=== PATIENT | female | born 1935 | race Caucasian/White ===

== ENCOUNTER 2016-07-07 05:19 | Day surgery (SDC) | payer OTHER, MEDICARE ==
[~2016-07-07] VITALS: Ht 167.6 cm; Wt 56.7 kg
--- NOTE | ~2016-07-07 | S ---
[facility] [place] [address] SURGICAL PATH RPT PROCEDURE Name: SAKSHI CAMEJO Room #: DEP [facility]#: [id number] Admission: 07/07/16 Date of : 35 Discharge: 07/07/16 Report #: [id number] Path Case #: [id number] PATHOLOGY REPORT COLLECTION DATE: 07/07/2016 RECEIVED DATE: 07/07/2016 SUBMITTING PHYS: Dr. Javier Beckwith OTHER PHYS: Dr. Erika Warren SPECIMEN(S) RECEIVED: A.Right upper lid tissue B.Right upper lid tissue-dif * * * * * * * * * * * * FINAL DIAGNOSIS: A. Skin and subcutaneous tissue "right upper lid tissue", biopsy: - Skin and subcutaneous tissue with reactive changes including fibrosis, chronic inflammation and foci of foreign body type giant cell response. B. Skin, right upper lid tissue, direct immunofluorescence, two pieces (black and blue inked): - Negative. There is no evidence to support an immunobullous disorder. COMMENT: Direct immunofluorescence was performed by Dr. Rizo. (CLW:alyce:; d/t: 07/11/16) PATHOLOGIST: Kelsie Lui M.D. REPORT ELECTRONICALLY SIGNED BY: Kelsie Lui M.D. DATE/TIME: 07/11/2016 22:14 * * * * * * * * * * * * MICROSCOPIC DESCRIPTION: B. Direct immunofluorescence (performed with appropriate positive controls): Black inked specimen IgG: negative IgA: negative IgM: negative C3: negative Fibrinogen: negative Blue inked specimen IgG: negative IgA: negative IgM: negative C3: negative [facility] [address] [place] [address] SURGICAL PATH RPT PROCEDURE Name: SAKSHI CAMEJO Room #: [facility]#: [id number] Admission: 07/07/16 Date of : 35 Discharge: 07/07/16 Report #: [id number] Path Case #: [id number] Fibrinogen: negative GROSS PATHOLOGY: A. The specimen is received fresh from the OR labeled, "Sakshi Camejo, right upper lid tissue." It consists of two fragments of hair/eyelash bearing eyelid skin and subcutaneous/submucosal tissue. One fragment measures 0.7 x 0.5 x 0.3 cm. The second fragment measures 0.9 x 0.4 x 0.2 cm. The larger fragment is inked blue, and the smaller fragment is inked black. Both fragments are bisected. One half of each tissue fragment is submitted as A1. The remaining half of each fragment is submitted in saline and subsequently processed for direct immunofluorescence. The case was discussed intraoperatively with Dr. Javier Beckwith. (BHAVANI:; d/t: 07/07/16) B. The specimen is received in saline, labeled "Sakshi Camejo" and additionally labeled "right upper lid tissue" on the requisition. Received are 2 irregular excisions of skin measuring 0.5 x 0.3 x 0.3 cm and 0.7 x 0.2 x 0.5 cm. The epidermal surfaces are myers, wrinkled, and grossly unremarkable. The resection margin of the skin excisions were previously differentially inked black and blue. The specimen is transferred into Bryce fixative and entirely submitted in cassette B1, for direct immunofluorescence studies. (TTL; 07/07/2016) INTRAOPERATIVE CONSULTATION (Lucila Lui M.D.) A. "Right upper lid tissue": - Eyelid cicatricial entropion tissue for the evaluation of immunoglobulin basement membrane disease. (CLW:; d/t: 07/07/16) Testing performed by [facility] at [facility] [address] [place] [address] CLINICAL HISTORY: Cicatricial entropion INITIAL CPT CODE(S): A; 54266, 05740 B; 93919, 71401, 89883, 22822, 82707, 41414, 03582(4) Professional services performed by [facility] at [facility] [address] [place] [address] Technical services performed by [facility] at [address] [place] [address], [address] [address]. [facility] [place] [address] [address] SURGICAL PATH RPT PROCEDURE Name: SAKSHI CAMEJO Room #: DEP [facility] M.Felicia#: [id number] Admission: 07/07/16 Date of : 35 Discharge: 07/07/16 Report #: [id number] Path Case #: [id number] [facility] [address] [address] PHONE: [phone] DIRECTOR: Eliu Cox M.D. * * * END OF REPORT * * *
--- NOTE | ~2016-07-07 | O ---
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 PROCEDURE: Excision of right upper lid with myocutaneous flap repair of defect and correction of entropion. SURGEON: Javier Beckwith M.D. RENT AND HOUSING INVESTIGATOR: None. ANESTHESIA: MAC. COMPLICATIONS: None. 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 She presents today for a right upper lid excision with flap repair of that defect and correction of her right upper lid entropion. An informed consent was obtained to include but not limited to the potential risk for loss of vision, bleeding, infection, failure to improve the problem, and the potential need for further surgery or treatment. DESCRIPTION OF PROCEDURE: The patient was taken to the operating room where 2% Xylocaine with epinephrine mixed with equal parts of 0.75% Marcaine with Wydase was administered transcutaneously and transconjunctivally to the right upper lid. The patient was subsequently prepped and draped in the usual sterile fashion. The lid was then everted to try estimate the area of the cicatrix. This area was then outlined with a fine tip skin marking pen in a pentagonal resection, and the medial upper lid just lateral to the punctum. The incisions were then made perpendicularly across the eyelid margin, with a Nirav scissor and then drawn to a point at the arcus marginalis. Hemostasis was achieved in this area with diligent pinpoint monopolar cautery. The right upper lid was then everted laterally, which showed that there was still a cicatrix remaining laterally. An additional 3 mm of the lid was then taken in a similar fashion. The right upper lid was then everted, utilizing interrupted 6-0 Vicryl sutures [address] [address] OPERATIVE REPORT Name: ALLEN NORTON Room #: DEP [facility].#: [id number] Admission: 07/07/16 Attend Phys: Javier Beckwith MD Discharge: 07/07/16 Date of : 35 Report #: [id number] medial and lateral to the resected area. A mattress technique was used, which everted the lid nicely. The lid was then undermined laterally allowing it to be medialized for a flap repair of that defect in the right upper lid. Hemostasis was re-achieved. The flap was then advanced and closed with interrupted buried 6-0 Vicryl sutures deep. The tarsal plate was reapproximated with interrupted 6-0 Vicryl sutures. The eyelid margin was reapproximated with interrupted 7-0 Vicryl sutures. The subcutaneous structures and the skin were then closed with interrupted 6-0 plain gut sutures. The wounds were then cleaned and dressed with erythromycin ointment, and the patient subsequently transported to the recovery area having tolerated the procedures well with no anesthetic or operative complications being noted. <ELECTRONICALLY SIGNED> By: Javier Beckwith MD 07/11/16 0621 [id number] [id number] Javier Beckwith MD /nt
[~2016-07-07 05:19] MED LIST: FISH OIL 1,4001 EACH PO; LISINOPRIL20 MG PO; SIMVASTATIN PO
[2016-07-07 09:34] VITALS: BP 151/73
== END 2016-07-07 11:50 | disposition home or self-care (01) ==
LOC: TBA 05:19 → OR 05:19 → TBA 05:26 → OR 09:35
DX: H02.011 Cicatricial entropion of right upper eyelid (principal); I10 Essential (primary) hypertension; E78.5 Hyperlipidemia, unspecified; G47.33 Obstructive sleep apnea (adult) (pediatric); Z87.891 Personal history of nicotine dependence
CPT/HCPCS: 50010; 50101; 50386; 50398; 51636; 56528; 56531; 62110; 62850; 70005